=== PATIENT | male | born 1980 | race Two or more races ===

== ENCOUNTER 2022-07-29 17:40 | Inpatient (IN) | payer OTHER ==
[~2022-07-29] VITALS: Ht 170.2 cm; Wt 66.7 kg
--- NOTE | 2022-07-29 18:02 | NUR ---
PATIENT IS RECIEVED SAYING THAT HE'S BEEN EXPERIENCING GENERAL WEAKNESS FOR A WEEK NOW.
--- NOTE | 2022-07-29 21:15 | NUR ---
MASCULINO ALERTA Y ORIENTADO X3 EVALUADO POR DRA HARRIS QUIEN ORDENA TX MEDICO. SE EDUCA A PTE Y SE EJECUTA ORDEN MEDICA. PENDIENTE ABGS Y EKG.
--- NOTE | 2022-07-30 00:16 | NUR ---
PACIENTE ALERTA Y ORIENTADO X3. SE MUEVE AL AREA DE INTENSIVO DE ZACKERY DE EMERGENCIA BONG # 2. SE EDUCA PACIENT SOBRE CRUZ TRTAMIENTO MEDICO Y EL MISMSO REFIERE ENTENDER. SE CONECTA A MONITOR CARDIACO Y OXIMETRIA DE [place]. SE CANALIZA EN MANO IZQUIERDA # 18. SE ADMINISTRAN MEDS BABATUNDE ORDEN MEDICA. SE FRITZ MUESTRAS DE MARCOS Y SE ENVIAN A LABORATORIO. SE ENTREGA PACIENTE A Anitra PHAM.
== END 2022-08-09 16:12 | disposition home or self-care (01) | DRG 291 ==
LOC: ER 17:40 → ICU-2 07-30 01:59 → MEDI 07-30 01:59 → ICU 07-30 01:59 → MEDI 08-04 14:29
PROVIDERS: ADMIT Internal Medicine; ATTEND Internal Medicine
PROC: B24BZZZ Ultrasonography of Heart with Aorta (ICD-10-PCS; 2022-07-29)
PROC: BW21ZZZ Computerized Tomography (CT Scan) of Abdomen and Pelvis (ICD-10-PCS; 2022-07-29)
PROC: 4A12X4Z Monitoring of Cardiac Electrical Activity, External Approach (ICD-10-PCS; 2022-07-30)
PROC: 5A2204Z Restoration of Cardiac Rhythm, Single (ICD-10-PCS; principal; 2022-08-09)
DX: I11.0 Hypertensive heart disease with heart failure (principal); I50.23 Acute on chronic systolic (congestive) heart failure; E87.20 Acidosis, unspecified; N17.8 Other acute kidney failure; I50.82 Biventricular heart failure; I42.8 Other cardiomyopathies; I27.20 Pulmonary hypertension, unspecified; E87.5 Hyperkalemia; E80.6 Other disorders of bilirubin metabolism; F12.20 Cannabis dependence, uncomplicated; Z20.822 Contact with and (suspected) exposure to COVID-19

== ENCOUNTER 2022-08-11 22:17 | Emergency (ER) | payer OTHER ==
[~2022-08-11] VITALS: Ht 170.2 cm; Wt 63.0 kg
[2022-08-11] MEDS ORDERED: TOPROL XL25 M1 PO (22:30)
[2022-08-11] MEDS ORDERED: AMIODARONE HCL100 MG PO (22:30)
[2022-08-11] MEDS ORDERED: PEPCID AC20 MG PO (22:31)
[2022-08-11] MEDS ORDERED: WARFARIN SODIUM5 MG PO (22:32)
[2022-08-11] MEDS ORDERED: LASIX20 MG PO (22:32)
== END 2022-08-12 03:21 | disposition left against medical advice (07) ==
LOC: ER 22:17
DX: R07.9 Chest pain, unspecified (principal); Z88.6 Allergy status to analgesic agent; Z20.822 Contact with and (suspected) exposure to COVID-19

== ENCOUNTER 2022-12-14 07:43 | Outpatient (CLI) | payer OTHER ==
[~2022-12-14 07:43] MED LIST: AMIODARONE HCL100 MG PO; LASIX20 MG PO; PEPCID AC20 MG PO; TOPROL XL25 M1 PO; WARFARIN SODIUM5 MG PO
== END 2022-12-14 07:46 | disposition home or self-care (01) ==
LOC: NUCLEAR 07:43
PROVIDERS: ATTEND Internal Medicine
DX: I50.20 Unspecified systolic (congestive) heart failure (principal); I51.3 Intracardiac thrombosis, not elsewhere classified; I50.82 Biventricular heart failure; Z95.810 Presence of automatic (implantable) cardiac defibrillator